=== PATIENT | female | born 1990 | race Caucasian/White ===

== ENCOUNTER 2019-12-16 18:47 | Emergency (ER) | payer MEDICAID ==
[~2019-12-16] VITALS: Ht 162.6 cm; Wt 43.6 kg
[~2019-12-16 18:47] MED LIST: MOTRIN 600600 MG/TAB PO; PERCOCET 325 MG1 TA2 PO; PRENATAL PO; TYLENOL 500MG500 MG PO
[2019-12-16 23:45] VITALS: BP 122/76; PULSE 76; TEMP 96.9
== END 2019-12-16 23:55 | disposition home or self-care (01) ==
LOC: COL.ER 18:47
DX: S06.0X0A Concussion without loss of consciousness, initial encounter (principal); W00.0XXA Fall on same level due to ice and snow, initial encounter; R40.2412 Glasgow coma scale score 13-15, at arrival to emergency department